=== PATIENT | male | born 1945 | race Two or more races ===

== ENCOUNTER 2018-08-09 18:00 | Inpatient (IN) | payer MEDICARE, OTHER ==
[~2018-08-09] VITALS: Ht 167.6 cm; Wt 85.3 kg
[~2018-08-09 18:00] MED LIST: AMLO1CAP2 PO; ASPI-515 PO; CALC500T93 PO; CARV12.52 PO; CHOL200085 PO; DIPH25CA61 PO; EZET10TA18 PO; GABA-826 PO; HYDR-3240 PO; HYDR25TA6 PO; NIAC500C8 PO; PANT40TA3 PO; TRAM50TA2 PO; UBID100C41 PO; [UNRECOGNIZED DRUG - CODE] PO
[2018-08-09 18:23] LABS: BASOPHILS # (AUTO) 0.05 x10^3/uL (0-0.1); BASOPHILS % (AUTO) 1 % (0-1); EOSINOPHILS # (AUTO) 0.34 x10^3/uL (0-0.4); EOSINOPHILS % (AUTO) 3 % (1-7); LYMPHOCYTES # (AUTO) 1.47 x10^3/uL (1-3.4); LYMPHOCYTES % (AUTO) 15 % (22-44); MD NO; MEAN CORPUSCULAR HEMOGLOBIN 32.7 pg (27.5-34.5); MEAN CORPUSCULAR HGB CONC 34.8 g/dL (33.2-36.2); MEAN CORPUSCULAR VOLUME 93.8 fL (81-97); MEAN PLATELET VOLUME 8.9 fL (7.4-10.4); MONOCYTES # (AUTO) 0.98 x10^3/uL (0.2-0.8); MONOCYTES % (AUTO) 10 % (2-9); NEUTROPHILS # (AUTO) 6.99 x10^3/uL (1.8-6.8); NEUTROPHILS % (AUTO) 71 % (42-75); PLATELET COUNT 226 x10^3/uL (130-400); RED BLOOD COUNT 5.31 x10^6/uL (4.38-5.82); RED CELL DISTRIBUTION WIDTH 12.8 % (9.4-14.8)
[2018-08-09] MEDS ORDERED: MORPHINE SULFATE 4 MG/ML, 1ML IVPush ONE (18:30)
[2018-08-09 18:34] LABS: ALBUMIN 3.5 g/dL (3.4-5.0); ANION GAP 9 mmol/L (5-15); CALCIUM 8.7 mg/dL (8.5-10.1); CHLORIDE 105 mmol/L (98-107); CREATININE 1.36 mg/dL (0.7-1.3)
[2018-08-09] MEDS ORDERED: MORPHINE SULFATE 4 MG/ML, 1ML ONE (18:42)
[2018-08-09] MEDS ORDERED: ENALAPRILAT 1.25 MG/ML, 2ML IV ONE ×2 (20:00→20:30)
[2018-08-09] MEDS ORDERED: ENALAPRILAT 1.25 MG/ML, 2ML ONE ×2 (20:08→20:26)
[2018-08-09] MEDS ORDERED: hydrALAzine 20 MG/ML, 1ML IV ONE (21:00)
[2018-08-09] MEDS ORDERED: hydrALAzine 20 MG/ML, 1ML ONE (21:17)
[2018-08-09 21:24] LABS: MICROSCOPIC AUTO
[2018-08-09 21:30] LABS: CULTURE INDICATED? NO
[2018-08-09 22:13] VITALS: BP 214/117
[2018-08-09 22:20] VITALS: BP_SYST 199; BP_SYST 226; BP_SYST 230; BP_DIAS 112; BP_DIAS 117; BP_DIAS 125
[2018-08-09 22:28] VITALS: BP 191/110
[2018-08-09 22:43] VITALS: BP 207/116
[2018-08-09 22:58] VITALS: BP 202/98
[2018-08-09] MEDS ORDERED: POTASSIUM CHLORIDE 20 MEQ TAB.ER.PRT PO ONE (23:00)
[2018-08-09] MEDS ORDERED: TEMAZEPAM 15 MG CAPSULE PO PRN (23:00)
[2018-08-09] MEDS ORDERED: hydrALAzine 20 MG/ML, 1ML IVPush PRN (23:00)
[2018-08-09] MEDS ORDERED: DOCUSATE 100 MG CAPSULE PO PRN (23:00)
[2018-08-09] MEDS ORDERED: ONDANSETRON ODT 4 MG PO PRN (23:00)
[2018-08-09] MEDS: CARVEDILOL 12.5 MG TABLET PO SCH (23:11)
[2018-08-09] MEDS: HEPARIN 5,000 UNITS/ML, 1ML SQ SCH (23:11)
[2018-08-09] MEDS: LABETALOL 5MG/ML, 20ML IVPush PRN (23:15)
[2018-08-09 23:25] VITALS: BP 112/80
[2018-08-09 23:50] LABS: HEMOGLOBIN A1C 5.6 % (4.2-6.3)
[2018-08-10] VITALS (23 sets, daily range): BP systolic 143–215; BP diastolic 84–121
[2018-08-10] MEDS: ENALAPRILAT 1.25 MG/ML, 2ML IVPush PRN ×3 (02:48→16:22)
[2018-08-10] MEDS: LABETALOL 5MG/ML, 20ML IVPush PRN ×2 (06:31→19:24)
[2018-08-10] MEDS ORDERED: AMLODIPINE 10 MG TAB PO SCH ×2 (09:00)
[2018-08-10] MEDS ORDERED: HYDROCHLOROTHIAZIDE 25 MG TABLET PO SCH (09:00)
[2018-08-10] MEDS: ASPIRIN 81 MG TABLET EC PO SCH (09:01)
[2018-08-10] MEDS: BENAZEPRIL 20 MG TABLET PO SCH (09:02)
[2018-08-10] MEDS: PANTOPROZOLE 40MG TABLET PO SCH (09:03)
[2018-08-10] MEDS: NIACIN 500 MG TABLET.ER PO SCH (09:03)
[2018-08-10] MEDS: AMLODIPINE 5 MG TABLET PO SCH (09:03)
[2018-08-10] MEDS: CARVEDILOL 12.5 MG TABLET PO SCH ×2 (09:04→21:27)
[2018-08-10] MEDS: CHOLECALCIFEROL 1,000 UNIT TABLET PO SCH (09:04)
[2018-08-10] MEDS: HEPARIN 5,000 UNITS/ML, 1ML SQ SCH ×2 (09:05→17:18)
[2018-08-10] MEDS ORDERED: HYDROCHLOROTHIAZIDE 25 MG TABLET PO ONE (16:30)
[2018-08-11 00:48] VITALS: BP 138/103
[2018-08-11] MEDS: LABETALOL 5MG/ML, 20ML IVPush PRN (01:19)
[2018-08-11] MEDS: HEPARIN 5,000 UNITS/ML, 1ML SQ SCH ×2 (01:19→09:23)
[2018-08-11 02:42] VITALS: BP 146/98
[2018-08-11 05:09] LABS: ALANINE AMINOTRANSFERASE 27 U/L (12-78); ALBUMIN 3.4 g/dL (3.4-5.0); ANION GAP 12 mmol/L (5-15); CHLORIDE 99 mmol/L (98-107); CREATININE 1.47 mg/dL (0.7-1.3)
[2018-08-11 05:11] LABS: ALKALINE PHOSPHATASE 105 U/L (45-117); BILIRUBIN,TOTAL 1.1 mg/dL (0.2-1.0); TOTAL PROTEIN 7.2 g/dL (6.4-8.2)
[2018-08-11 07:35] VITALS: BP 146/97
[2018-08-11] MEDS ORDERED: HYDROCHLOROTHIAZIDE 25 MG TABLET PO SCH ×2 (09:00→10:00)
[2018-08-11] MEDS: AMLODIPINE 5 MG TABLET PO SCH (09:23)
[2018-08-11] MEDS: ASPIRIN 81 MG TABLET EC PO SCH (09:24)
[2018-08-11] MEDS: NIACIN 500 MG TABLET.ER PO SCH (09:24)
[2018-08-11] MEDS: PANTOPROZOLE 40MG TABLET PO SCH (09:24)
[2018-08-11] MEDS: CHOLECALCIFEROL 1,000 UNIT TABLET PO SCH (09:25)
[2018-08-11] MEDS: BENAZEPRIL 20 MG TABLET PO SCH (09:25)
[2018-08-11] MEDS ORDERED: CARVEDILOL 25 MG TABLET PO SCH (10:00)
[2018-08-11 14:00] VITALS: BP_SYST 120; BP_SYST 127; BP_DIAS 76; BP_DIAS 77
[2018-08-11] MEDS ORDERED: HYDR-3343 PO (14:49)
[2018-08-11] MEDS ORDERED: CARV25TA12 PO (15:40)
== END 2018-08-11 16:55 | disposition home or self-care (01) | DRG 305 ==
LOC: ED 21:03 → EDIP 21:05 → 5SO 22:14 → DCLOUNGE 08-11 16:36
PROVIDERS: ADMIT Hospitalist; ATTEND Internal Medicine
DX: I16.0 Hypertensive urgency (principal); E87.6 Hypokalemia; G47.33 Obstructive sleep apnea (adult) (pediatric); I10 Essential (primary) hypertension; I25.10 Atherosclerotic heart disease of native coronary artery without angina pectoris; Z82.49 Family history of ischemic heart disease and other diseases of the circulatory system; Z95.1 Presence of aortocoronary bypass graft; Z88.8 Allergy status to other drugs, medicaments and biological substances; R10.9 Unspecified abdominal pain; R73.9 Hyperglycemia, unspecified
CPT/HCPCS: 36415; 76857; 80048; 80053; 81001; 82040; 83036; 85025; 93005; 96374; 96375; G0378; J1644; Q0162; J0360

== ENCOUNTER → 2018-09-18 | Outpatient (CLI) | payer MEDICARE ==
[~2018-09-18] MED LIST changes: +CARV-39 PO; +CARV25TA12 PO; +CRESTOR PO; +HYDR-3343 PO; +HYDR100T25 PO; +LATA2.5D3 EACHEYE; +POTA20TA89 PO
== END | disposition home or self-care (01) ==
LOC: STAR 13:00
PROVIDERS: ATTEND Surgery
DX: Z01.818 Encounter for other preprocedural examination (principal); K40.90 Unilateral inguinal hernia, without obstruction or gangrene, not specified as recurrent; I25.2 Old myocardial infarction
CPT/HCPCS: 93005

== ENCOUNTER 2018-09-22 10:27 | Day surgery (SDC) | payer MEDICARE ==
[~2018-09-22] VITALS: Ht 166.4 cm; Wt 88.0 kg
[~2018-09-22 10:27] MED LIST changes: -LATA2.5D3 EACHEYE
[2018-09-22] MEDS ORDERED: LACTATED RINGERS 1,000 ML IV SCH (10:56)
[2018-09-22 11:00] VITALS: BP 144/85
[2018-09-22] MEDS ORDERED: LATA2.5D3 EACHEYE (11:00)
[2018-09-22] MEDS ORDERED: BUPIVACAINE/PF-EPI 0.5% 1:200K ONE (11:13)
[2018-09-22] MEDS ORDERED: FENTANYL PF 250 MCG/5ML ONE (11:20)
[2018-09-22] MEDS ORDERED: MIDAZOLAM 1 MG/ML, 2ML ONE (11:20)
[2018-09-22] MEDS ORDERED: PROPOFOL 10 MG/ML, 20ML ONE (11:26)
[2018-09-22] MEDS ORDERED: ONDANSETRON 2MG/ML, 2ML ONE (11:26)
[2018-09-22] MEDS ORDERED: ROCURONIUM 10 MG/ML,10ML ONE ×2 (11:26)
[2018-09-22] MEDS ORDERED: DEXAMETHASONE 4 MG/ML, 1ML ONE (11:26)
[2018-09-22] MEDS ORDERED: CEFAZOLIN 1,000 MG ONE (11:26)
[2018-09-22] MEDS ORDERED: KETOROLAC 30 MG/1 ML ONE (11:26)
[2018-09-22] MEDS ORDERED: EPHEDRINE 50 MG/ML, 1ML ONE (11:37)
[2018-09-22] MEDS ORDERED: BUPIVACAINE/PF-EPI 0.5% 1:200K INFIL ONE (11:55)
[2018-09-22] MEDS ORDERED: hydrALAzine 20 MG/ML, 1ML IV PRN (12:00)
[2018-09-22] MEDS ORDERED: ALBUTEROL SULFATE 2.5 MG/3 ML NPPB PRN (12:00)
[2018-09-22] MEDS ORDERED: FENTANYL PF 100 MCG/2ML IV PRN (12:00)
[2018-09-22] MEDS ORDERED: EPHEDRINE 50 MG/ML, 1ML IVPush PRN (12:00)
[2018-09-22] MEDS ORDERED: ACETAMINOPHEN 325 MG TABLET PO PRN (12:00)
[2018-09-22] MEDS ORDERED: PROMETHAZINE 25 MG/ML, 1ML IV PRN (12:00)
[2018-09-22] MEDS ORDERED: HYDROmorphone 1 MG/ML, 1ML IV PRN (12:00)
[2018-09-22] MEDS ORDERED: MIDAZOLAM 1 MG/ML, 2ML IV PRN (12:00)
[2018-09-22] MEDS ORDERED: DIAZEPAM 5 MG/ML, 2ML IVPush PRN (12:00)
[2018-09-22] MEDS ORDERED: PROMETHAZINE 12.5 MG SUPP PR PRN (12:00)
[2018-09-22] MEDS ORDERED: LABETALOL 5MG/ML, 20ML IV PRN (12:00)
[2018-09-22] MEDS ORDERED: HALOPERIDOL 5 MG/ML IV PRN (12:00)
[2018-09-22] MEDS ORDERED: ONDANSETRON ODT 8 MG PO PRN (12:00)
[2018-09-22] MEDS ORDERED: ONDANSETRON 2MG/ML, 2ML IV PRN (12:00)
[2018-09-22] MEDS ORDERED: MEPERIDINE/PF 25MG/0.5ML IVPush PRN (12:00)
[2018-09-22] MEDS ORDERED: NEOSTIGMINE 1 MG/ML, 10ML ONE (12:14)
[2018-09-22] MEDS ORDERED: GLYCOPYRROLATE 0.4 MG/2 ML, 2ML ONE (12:14)
[2018-09-22] MEDS ORDERED: OXYcodone 5 MG/5 ML ORAL.SOL UDC ONE (12:51)
[2018-09-22] MEDS ORDERED: FENTANYL PF 100 MCG/2ML ONE (12:51)
[2018-09-22] MEDS: OXYcodone 5 MG/5 ML ORAL.SOL UDC PO PRN ×2 (12:53→13:00)
[2018-09-22] MEDS ORDERED: OXYcodone 5 MG/5 ML ORAL.SOL UDC PO PRN (13:30)
== END 2018-09-22 15:50 | disposition home or self-care (01) ==
LOC: OUT 10:27
PROVIDERS: ATTEND Surgery
DX: K40.90 Unilateral inguinal hernia, without obstruction or gangrene, not specified as recurrent (principal); I10 Essential (primary) hypertension; I25.10 Atherosclerotic heart disease of native coronary artery without angina pectoris; E78.2 Mixed hyperlipidemia; K21.9 Gastro-esophageal reflux disease without esophagitis; Z79.82 Long term (current) use of aspirin; Z79.899 Other long term (current) drug therapy; Z95.1 Presence of aortocoronary bypass graft; Z88.5 Allergy status to narcotic agent; Z88.8 Allergy status to other drugs, medicaments and biological substances
CPT/HCPCS: 49650; C1781; J0690; J1100; J1885; J2250; J2405; J2704; J2710; J3010; J7120

== ENCOUNTER → 2020-12-09 | Outpatient (CLI) | payer MEDICARE ==
[~2020-12-09] MED LIST changes: -ASPI-515 PO; +ASPI-963 PO; +CHOL20002 PO; -CHOL200085 PO; -EZET10TA18 PO; +EZET10TA70 PO; +HYDR-1067 PO; -HYDR-3240 PO; +LATA2.5D4 EACHEYE
== END | disposition home or self-care (01) ==
LOC: CVU 12:28
PROVIDERS: ATTEND Internal Medicine Cardiovascular Disease
DX: I35.8 Other nonrheumatic aortic valve disorders (principal); I65.23 Occlusion and stenosis of bilateral carotid arteries; I25.810 Atherosclerosis of coronary artery bypass graft(s) without angina pectoris; I11.9 Hypertensive heart disease without heart failure; Z95.1 Presence of aortocoronary bypass graft
CPT/HCPCS: 93306; 93356; 93880